=== PATIENT | male | born 1950 | race Caucasian/White ===

== ENCOUNTER 2020-03-25 13:00 | Emergency (ER) | payer OTHER, SELFPAY ==
--- NOTE | 2020-03-25 14:12 | RAD REPORT ---
EXAM DESCRIPTION: CT - CTHCSPWOC - 03/25/2020 1:22 pm CLINICAL HISTORY: Trauma, head and neck injury. Pain;Swelling COMPARISON: No comparisons TECHNIQUE: Axial 5 mm thick images of the head were obtained. Axial 2 mm thick images of the cervical spine were obtained with sagittal and coronal reconstruction images generated and reviewed. All CT scans are performed using dose optimization technique as appropriate and may include automated exposure control or mA/KV adjustment according to patient size. FINDINGS: CT HEAD WITHOUT CONTRAST: No acute hemorrhage, hydrocephalus or extra-axial collection is identified.Mild brain atrophy.No area s of brain edema or midline shift. Mild mucosal thickening left maxillary and right ethmoid air cell. The paranasal sinuses mastoids are otherwise.The calvarium is intact. CT CERVICAL SPINE WITHOUT CONTRAST: No fracture or subluxation.No prevertebral soft tissues swelling is identified. IMPRESSION: No acute intracranial or cervical spine findings.
--- NOTE | 2020-03-25 14:16 | RAD REPORT ---
EXAM DESCRIPTION: RAD - Chest Single View - 03/25/2020 2:09 pm CLINICAL HISTORY: COUGH Chest pain. COMPARISON: No comparisons FINDINGS: Portable technique limits examination quality. The lungs are grossly clear. The heart is mildly prominent size. No displaced fractures. IMPRESSION: No acute intrathoracic process suspected.
--- NOTE | 2020-03-25 14:18 | RAD REPORT ---
EXAM DESCRIPTION: RAD - Humerus Left - 03/25/2020 2:09 pm CLINICAL HISTORY: PAIN Fall, pain COMPARISON: No comparisons FINDINGS: Transverse lucency seen in the distal humerus compatible with fracture. No dislocation see n. Prominent elbow joint degenerative changes are seen.
[2020-03-25 14:42] LABS: Absolute Lymphocytes (CBC) 1.9 K/uL (0.7-4.9); Basophils % 0.8 % (0-1.3); Hematocrit 48.4 % (39.6-49.0); Lymphocytes % 12.5 % (15.3-44.8); MPV 7.6 fL (7.6-11.3); RBC Red Blood Cell Count 5.57 M/uL (4.33-5.43)
[2020-03-25 14:48] LABS: Protime INR 0.98
[2020-03-25] MEDS ORDERED: FENTANYL CITR 100 MCG/2 ML ONE (15:03)
[2020-03-25] MEDS ORDERED: ONDANSETRON 4 MG/2 ML VIAL ONE (15:03)
[2020-03-25 15:55] LABS: ALT/SGPT 55 U/L (12-78); AST/SGOT 20 U/L (15-37); Albumin 3.2 g/dL (3.4-5.0); Alkaline Phosphatase 105 U/L (45-117); BUN Blood Urea Nitrogen 16 mg/dL (7-18); Bicarbonate 23 mmol/L (21-32); Bilirubin Direct 0.1 mg/dL (0-0.2); Bilirubin Total 0.3 mg/dL (0.2-1.0); Magnesium 2.2 mg/dL (1.8-2.4); NT PRO-BNP 29 pg/mL (<125); Potassium 4.2 mmol/L (3.5-5.1); Protein, Total 7.6 g/dL (6.4-8.2); Sodium Level 134 mmol/L (136-145); Troponin (Emerg Dept Use Only) < 0.02 ng/mL (0.0-0.045)
[2020-03-25 15:58] LABS: Glucose Level 467 mg/dL (74-106)
--- NOTE | 2020-03-25 16:02 | ER ---
Nurse's Notes [facility] Name: Rick Noble Age: 70 yrs Sex: Male : 1950 Arrival Date: 03/25/2020 Time: 13:01 Bed 3 Private MD: Diagnosis: Syncope and collapse-near;Nondisplaced simple supracondylar fracture without intercondylar fracture of left humerus;Obesity, unspecified;Essential (primary) hypertension;Atrial fibrillation and flutter;Type 2 diabetes mellitus Presentation: 03/25 13:02 Chief complaint: EMS states: Had unwitnessed syncopal episode in restroom of [facility], ph has frequent syncopal episodes, did hit head on bathroom stall door, also reports that he landed on his L side, c/o L upper arm pain, does take blood thinnners. Coronavirus screen: Patient denies a cough. Patient denies shortness of breath or difficulty breathing. Patient denies measured and/or subjective temperature greater than 100.4F prior to today's visit. Patient denies travel on a cruise ship or to a country the [facility] currently lists as an affected area. Patient denies contact with known and/or suspected case of COVID-19. Ebola Screen: No symptoms or risks identified at this time. Initial Sepsis Screen: Does the patient meet any 2 criteria? No. Patient's initial sepsis screen is negative. Does the patient have a suspected source of infection? No. Patient's initial sepsis screen is negative. Risk Assessment: Do you want to hurt yourself or someone else? Patient reports no desire to harm self or others. Onset of symptoms was March 25, 2020. 13:02 Method Of Arrival: EMS: [facility] ph 13:02 Acuity: EDER 2 ph 13:10 Care prior to arrival: sling to L arm. Mechanism of Injury: Fall from standing ph position. Trauma event details: Injury occurred in the [facility], Injury occurred: in a public building. Injury occurred: March 25, 2020. Historical: - Allergies: 13:06 Onion; ph - PMHx: 13:06 Atrial Fib; Hypertension; Hyperlipidemia; Diabetes - NIDDM; ph - Immunization history:: Adult Immunizations unknown. - Family history:: not pertinent. Screenin:06 Abuse screen: Denies threats or abuse. Denies injuries from another. Nutritional ph screening: No deficits noted. Tuberculosis screening: No symptoms or risk factors identified. Fall Risk Fall in past 12 months (25 points). Secondary diagnosis (15 points) frequent syncopal episodes. No IV (0 pts). Primary Survey: 13:09 NO uncontrolled hemorrhage observed. A: The patient is alert. No supplemental oxygen in ph use on arrival. Oral cavity: clear, Trachea midline. A: Airway: patent. Breathing/Chest: Respiratory pattern:. Breathing/Chest: Respiratory effort: spontaneous, unlabored, Chest inspection: symmetrical rise and fall of the chest. Circulation: Pulses: palpable right radial artery and left radial artery. Skin color: pink, Skin temperature: warm, dry. Disability Alert. Exposure/Environment: There is no evidence of uncontrolled external bleeding. Assessment: 13:08 General: Appears in no apparent distress. uncomfortable, obese, Behavior is calm, ph cooperative, appropriate for age. Pain: Complains of pain in left bicep. Neuro: Level of Consciousness is awake, alert, obeys commands, Oriented to person, place, time, situation, Reports a syncopal episode Denies weakness. Cardiovascular: Capillary refill < 3 seconds in bilateral fingers Patient's skin is warm and dry. Respiratory: Airway is patent Respiratory effort is even, unlabored, Respiratory pattern is regular, symmetrical. Derm: Skin is healthy with good turgor, Skin is pink, warm \T\ dry. Musculoskeletal: Circulation, motion, and sensation intact. Injury Description: Laceration sustained to left side of forehead. 14:20 Reassessment: Patient appears in no apparent distress at this time. Patient and/or em family updated on plan of care and expected duration. Pain level reassessed. Patient is alert, oriented x 3, equal unlabored respirations, skin warm/dry/pink. 16:20 Reassessment: Patient appears in no apparent distress at this time. Patient and/or em family updated on plan of care and expected duration. Pain level reassessed. Patient is alert, oriented x 3, equal unlabored respirations, skin warm/dry/pink. pending completion of IV NS. 17:16 Reassessment: Patient appears in no apparent distress at this time. Patient and/or em family updated on plan of care and expected duration. Pain level reassessed. Patient is alert, oriented x 3, equal unlabored respirations, skin warm/dry/pink. 19:32 Reassessment: attempt to call pt to notify that a yellow colored band with 8 clear sg stones in the band was left in the department per primary nurse GORDY Clifton. A pt belongings list has been filled out and the ring has been taken to the vault by security, a form has been place don the pt chart at this time. 20:20 Reassessment: pt called back, reports will not be able to return here to get the sg ring until morning, informed that the ring is with security in the vault, pt stated understanding. Vital Signs: 13:02 BP 146 / 71; Pulse 73; Resp 18; Pulse Ox 98% on R/A; ph 14:19 BP 159 / 71; Pulse 72; Resp 18; Pulse Ox 97% on R/A; em 14:19 Temp 97.9; em Eldena Coma Score: 13:10 Eye Response: spontaneous(4). Verbal Response: oriented(5). Motor Response: obeys ph commands(6). Total: 15. Trauma Score (Adult): 13:10 Eye Response: spontaneous(1); Verbal Response: oriented(1); Motor Response: obeys ph commands(2); Systolic BP: > 89 mm Hg(4); Respiratory Rate: 10 to 29 per min(4); Eldena Score: 15; Trauma Score: 12 ED Course: 13:01 Patient arrived in ED. ph 13:01 [facility] jr[facility] 13:01 Blair Bowen MD is Attending Physician. jr8 13:04 Triage completed. ph 13:07 Arm band placed on Patient placed in an exam room. ph 13:07 Patient has correct armband on for positive identification. Bed in low position. Call ph light in reach. Side rails up X2. monitor technician on. Pulse ox on. NIBP on. Door closed. Noise minimized. Warm blanket given. 13:11 Patient maintains SpO2 saturation greater than 95% on room air. Thermoregulation: warm ph blanket given to patient. 13:22 CT Head C Spine In Process Unspecified. EDMS 14:09 XRAY Chest (1 view) In Process Unspecified. EDMS 14:09 Humerus Left XRAY In Process Unspecified. EDMS 15:05 Orthoglass splint: posterior long arm splint applied to the left arm. Sling applied to em left arm. 15:08 Etienne Smiley, GORDY is Primary Nurse. em 16:01 Rick Santos MD is Referral Physician. [facility] 17:15 Love Holm FNP-C [facility] snw 17:15 No provider procedures requiring assistance completed. IV discontinued, intact, em bleeding controlled, No redness/swelling at site. Pressure dressing applied. Administered Medications: 15:06 Drug: Zofran (Ondansetron) 4 mg Route: IVP; Site: right hand; em 16:11 Follow up: Response: No adverse reaction em 15:08 Drug: fentaNYL (PF) 50 mcg Route: IVP; Site: right hand; em 16:10 Follow up: Response: No adverse reaction; Marked relief of symptoms; Pain is decreased em 16:21 Drug: Insulin Regular Human 10 units {Co-Signature: em (Etienne Smiley RN).} Route: IVP; hb Site: right hand; 16:58 Follow up: Response: No adverse reaction; Blood sugar is lowered em 16:21 Drug: NS 0.9% 1000 ml Route: IV; Rate: 1 bolus; Site: right hand; hb 16:58 Follow up: IV Status: Completed infusion; IV Intake: 1000ml em 16:36 Drug: LanTUS 40 units Route: Sub-Q; Site: right lower abdomen; em 16:58 Follow up: Response: No adverse reaction; Blood sugar is lowered em Point of Care Testing: Blood Glucose: 17:16 Blood Glucose: 338 mg/dL; em Ranges: Intake: 13:10 PO: 0ml; Total: 0ml. ph 16:58 IV: 1000ml; Total: 1000ml. em Output: 13:10 Urine: 0ml; Total: 0ml. ph Outcome: 16:01 Discharge ordered by . yunior 17:15 Discharged to home via wheelchair. em 17:15 Condition: stable 17:15 Discharge instructions given to patient, Instructed on discharge instructions, follow up and referral plans. medication usage, Demonstrated understanding of instructions, follow-up care, medications, splint care, Prescriptions given X 1. 17:17 Patient left the ED. em Signatures: Dispatcher [employer] Rick Arellano RN RN sg Anderson, Corey, MD MD cha Therrien Love, PLANT BREEDER-C PLANT BREEDER-Csnw Etienne Smiley, RN RN em Sampson Farias PA PA jr8 Rosalba Harper, RN RN Sarah Fernandez, RN RN Etienne Smiley RN
--- NOTE | 2020-03-25 16:03 | EDPHYS ---
Physician Documentation [facility] Name: Rick Noble Age: 70 yrs Sex: Male : 1950 Arrival Date: 03/25/2020 Time: 13: Bed 3 Private MD: ED Physician Blair Bowen HPI: 03/25 13:09 This 70 yrs old Male presents to ER via EMS with complaints of Syncope, Arm yunior Injury. 13:09 The patient has experienced syncope, became unresponsive. Onset: The symptoms/episode yunior began/occurred just prior to arrival. Duration: This was a single episode, that lasted an unknown period of time. Context: the episode(s) was witnessed, by a bystander, occurred at a store, occurred while the patient was standing. Associated injury: The patient did not suffer any apparent associated injury. Associated signs and symptoms: The patient has no apparent associated signs or symptoms. Current symptoms: Currently, the patient is not experiencing any symptoms. The patient has not experienced similar symptoms in the past. Historical: - Allergies: 13:06 Onion; ph - PMHx: 13:06 Atrial Fib; Hypertension; Hyperlipidemia; Diabetes - NIDDM; ph - Immunization history:: Adult Immunizations unknown. - Family history:: not pertinent. ROS: 13:09 Constitutional: Negative for fever, chills, and weight loss, Eyes: Negative for injury, yunior pain, redness, and discharge, ENT: Negative for injury, pain, and discharge, Cardiovascular: Negative for chest pain, palpitations, and edema, Respiratory: Negative for shortness of breath, cough, wheezing, and pleuritic chest pain, Abdomen/GI: Negative for abdominal pain, nausea, vomiting, diarrhea, and constipation, Back: Negative for injury and pain, : Negative for injury, bleeding, discharge, and swelling, MS/Extremity: Negative for injury and deformity, Skin: Negative for injury, rash, and discoloration. 13:09 Neck: Positive for pain with movement, pain at rest. 13:09 Neuro: Positive for headache. Exam: 13:09 Constitutional: This is a well developed, well nourished patient who is awake, alert, yunior and in no acute distress. Eyes: Pupils equal round and reactive to light, extra-ocular motions intact. Lids and lashes normal. Conjunctiva and sclera are non-icteric and not injected. Cornea within normal limits. Periorbital areas with no swelling, redness, or edema. ENT: Nares patent. No nasal discharge, no septal abnormalities noted. Tympanic membranes are normal and external auditory canals are clear. Oropharynx with no redness, swelling, or masses, exudates, or evidence of obstruction, uvula midline. Mucous membranes moist. Neck: Trachea midline, no thyromegaly or masses palpated, and no cervical lymphadenopathy. Supple, full range of motion without nuchal rigidity, or vertebral point tenderness. No Meningismus. Chest/axilla: Normal chest wall appearance and motion. Nontender with no deformity. No lesions are appreciated. Cardiovascular: Regular rate and rhythm with a normal S1 and S2. No gallops, murmurs, or rubs. Normal PMI, no JVD. No pulse deficits. Respiratory: Lungs have equal breath sounds bilaterally, clear to auscultation and percussion. No rales, rhonchi or wheezes noted. No increased work of breathing, no retractions or nasal flaring. Abdomen/GI: Soft, non-tender, with normal bowel sounds. No distension or tympany. No guarding or rebound. No evidence of tenderness throughout. Back: No spinal tenderness. No costovertebral tenderness. Full range of motion. Male : Normal genitalia with no discharge or lesions. Skin: Warm, dry with normal turgor. Normal color with no rashes, no lesions, and no evidence of cellulitis. MS/ Extremity: Pulses equal, no cyanosis. Neurovascular intact. Full, normal range of motion. Neuro: Awake and alert, GCS 15, oriented to person, place, time, and situation. Cranial nerves II-XII grossly intact. Motor strength 5/5 in all extremities. Sensory grossly intact. Cerebellar exam normal. Normal gait. Psych: Awake, alert, with orientation to person, place and time. Behavior, mood, and affect are within normal limits. 13:09 Head/face: Noted is contusion, swelling, that is mild, of the forehead. Vital Signs: 13:02 BP 146 / 71; Pulse 73; Resp 18; Pulse Ox 98% on R/A; ph 14:19 BP 159 / 71; Pulse 72; Resp 18; Pulse Ox 97% on R/A; em 14:19 Temp 97.9; em Saulo Coma Score: 13:10 Eye Response: spontaneous(4). Verbal Response: oriented(5). Motor Response: obeys ph commands(6). Total: 15. Trauma Score (Adult): 13:10 Eye Response: spontaneous(1); Verbal Response: oriented(1); Motor Response: obeys ph commands(2); Systolic BP: > 89 mm Hg(4); Respiratory Rate: 10 to 29 per min(4); [place] Score: 15; Trauma Score: 12 MDM: 13:04 Patient medically screened. jr8 13:14 Data reviewed: vital signs, nurses notes, lab test result(s), EKG, radiologic studies, yunior CT scan, plain films. 13:18 Differential Diagnosis: cardiac arrhythmia, cerebrovascular accident, idiopathic yunior syncope, vasovagal episode. Data interpreted: youth nutritional monitor: rate is 73 beats/min, Pulse oximetry: on 2L(s) per nasal canula, is 98 %. 13:19 Test interpretation: by ED physician or midlevel provider: ECG, plain radiologic yunior studies. Counseling: I had a detailed discussion with the patient and/or guardian regarding: the historical points, exam findings, and any diagnostic results supporting the discharge/admit diagnosis, lab results, radiology results. 03/25 13:09 Order name: Basic Metabolic Panel; Complete Time: 15:59 yunior 03/25 13:09 Order name: CBC with Diff; Complete Time: 15:13 yunior 03/25 13:09 Order name: LFT's; Complete Time: 15:59 yunior 03/25 13:09 Order name: Magnesium; Complete Time: 15:59 yunior 03/25 13:09 Order name: NT PRO-BNP; Complete Time: 15:59 03/25 13:09 Order name: PT-INR; Complete Time: 15:13 yunior 03/25 13:09 Order name: Troponin (emerg Dept Use Only); Complete Time: 15:59 yunior 03/25 13:09 Order name: XRAY Chest (1 view); Complete Time: 14:34 yunior 03/25 13:09 Order name: CT Head C Spine; Complete Time: 14:17 yunior 03/25 13:09 Order name: Humerus Left XRAY; Complete Time: 14:34 yunior 03/25 17:10 Order name: Glucose, Ancillary Testing; Complete Time: 17:17 EDMI 03/25 13:09 Order name: EKG; Complete Time: 13:10 [facility] 03/25 13:09 Order name: Cardiac monitoring; Complete Time: 14:18 [facility] 03/25 13:09 Order name: EKG - Nurse/Tech; Complete Time: 14:54 [facility] 03/25 13:09 Order name: IV Saline Lock; Complete Time: 14:18 [facility] 03/25 13:09 Order name: Labs collected and sent; Complete Time: 14:18 [facility] 03/25 13:09 Order name: O2 Per Protocol; Complete Time: 14:18 [facility] 03/25 13:09 Order name: O2 Sat Monitoring; Complete Time: 14:18 [facility] 03/25 14:08 Order name: Posterior Elbow Splint: well padded, sling; Complete Time: 15:07 [facility] Administered Medications: 15:06 Drug: Zofran (Ondansetron) 4 mg Route: IVP; Site: right hand; em 16:11 Follow up: Response: No adverse reaction em 15:08 Drug: fentaNYL (PF) 50 mcg Route: IVP; Site: right hand; em 16:10 Follow up: Response: No adverse reaction; Marked relief of symptoms; Pain is decreased em 16:21 Drug: Insulin Regular Human 10 units {Co-Signature: em (Etienne Smiley RN).} Route: IVP; hb Site: right hand; 16:58 Follow up: Response: No adverse reaction; Blood sugar is lowered em 16:21 Drug: NS 0.9% 1000 ml Route: IV; Rate: 1 bolus; Site: right hand; hb 16:58 Follow up: IV Status: Completed infusion; IV Intake: 1000ml em 16:36 Drug: LanTUS 40 units Route: Sub-Q; Site: right lower abdomen; em 16:58 Follow up: Response: No adverse reaction; Blood sugar is lowered em Point of Care Testing: Blood Glucose: 17:16 Blood Glucose: 338 mg/dL; em Ranges: Critical Glucose Levels:Adult <50 mg/dl or >400 mg/dl <40 mg/dl or >180 mg/dl Disposition: 03/25/20 16:01 Discharged to Home. Impression: Syncope and collapse - near, Nondisplaced simple supracondylar fracture without intercondylar fracture of left humerus, Obesity, unspecified, Essential (primary) hypertension, Atrial fibrillation and flutter, Type 2 diabetes mellitus. - Condition is Fair. - Discharge Instructions: Atrial Fibrillation, Type 2 Diabetes Mellitus, Diagnosis, Adult, Humerus Fracture Treated With Immobilization, Hypertension, Near-Syncope, Obesity, Adult, Syncope, Humerus Fracture Treated With Immobilization, Krvq-bm-[id number], Near-Syncope, Twhd-sb-Gfky, Hypertension, Ghii-mh-Xotn, Syncope, Kmit-es-Fcgr, Type 2 Diabetes Mellitus, Diagnosis, Adult, Qfct-ed-Qmse, Atrial Fibrillation, Jnnz-he-Wmjn, Obesity, Adult, Ubtz-bb-Yxzy, Vasovagal Syncope, Adult. - Prescriptions for Tylenol- Codeine #3 300-30 mg Oral Tablet - take 2 tablets by ORAL route every 6 hours As needed; 26 tablet. - Medication Reconciliation Form, Thank You Letter, Antibiotic Education, Prescription Opioid Use form. - Follow up: Private Physician; When: 2 - 3 days; Reason: Recheck today's complaints, Continuance of care, Re-evaluation by your physician. Follow up: Rick Santos; When: 2 - 3 days; Reason: Recheck today's complaints, Continuance of care, Re-evaluation by your physician. - Problem is new. - Symptoms have improved. Signatures: Dispatcher [employer] EDMI Blair Bowen MD MD cha Therrien, Shelly, MARBLE MACHINE OPERATOR-C MARBLE MACHINE OPERATOR-Csnw Etienne Smiley, GORDY KAMINSKI em Sampson Farias PA PA jr8 Rosalba Harper RN RN Sarah Fernandez RN RN Etienne Smiley RN em Corrections: (The following items were deleted from the chart) 14:09 13:46 Elbow Left 3 View+RAD.RAD.BRZ ordered. [facility] 17:17 16:01 03/25/2020 16:01 Discharged to Home. Impression: Syncope and collapse - near; em Nondisplaced simple supracondylar fracture without intercondylar fracture of left humerus; Obesity, unspecified; Essential (primary) hypertension; Atrial fibrillation and flutter; Type 2 diabetes mellitus. Condition is Fair. Discharge Instructions: Atrial Fibrillation, Humerus Fracture Treated With Immobilization, Hypertension, Near-Syncope, Obesity, Adult, Syncope, Humerus Fracture Treated With Immobilization, Lhmp-di-Ejfi, Near-Syncope, Ldyc-yp-Lrfm, Hypertension, Thqn-vt-Rzww, Syncope, Crta-lz-Zvrr, Atrial Fibrillation, Caxd-yy-Yutz, Obesity, Adult, Thiq-wu-Xtbc, Vasovagal Syncope, Adult. Prescriptions for Tylenol-Codeine #3 300-30 mg Oral Tablet - take 2 tablets by ORAL route every 6 hours As needed; 26 tablet. and Forms are Medication Reconciliation Form, Thank You Letter, Antibiotic Education, Prescription Opioid Use. Follow up: Private Physician; When: 2 - 3 days; Reason: Recheck today's complaints, Continuance of care, Re-evaluation by your physician. Follow up: Rick Santos; When: 2 - 3 days; Reason: Recheck today's complaints, Continuance of care, Re-evaluation by your physician. Problem is new. Symptoms have improved. yunior
[2020-03-25] MEDS ORDERED: INSULIN -REGULAR HUMAN 50 UNIT/0.5 ML ML ONE (16:19)
[2020-03-25] MEDS ORDERED: NA CHLORIDE 0.9% 1,000 ML ONE (16:20)
[2020-03-25] MEDS ORDERED: INSULIN GLARGINE 100 UNITS/ML SQ SCH (16:30)
[2020-03-25 17:24] VITALS: BP 159/71; TEMP 97.9; O2SAT 97
--- NOTE | 2020-03-26 09:50 | EKG ---
Test Date: 2020-03-25 Test Time: 14:38:49 Testing Lead: KEVIN MEASUREMENT RESULTS: Intervals: Rate: 70 CO: 176 QRSD: 86 QT: 424 QTc: 457 Buckley: P: 64 CO: 176 QRS: -24 T: 36 INTERPRETIVE STATEMENTS: Normal sinus rhythm Low voltage QRS Septal infarct, age undetermined Abnormal ECG No previous ECG available for comparison Electronically Signed On 03-26-20 09:49:32 CDT by Ortiz Haines
== END 2020-03-25 17:17 | disposition home or self-care (01) ==
LOC: ER 13:00
PROC: 2W39X1Z Immobilization of Left Upper Extremity using Splint (ICD-10-PCS; principal; 2020-03-25)
DX: S42.415A Nondisplaced simple supracondylar fracture without intercondylar fracture of left humerus, initial encounter for closed fracture (principal); W01.198A Fall on same level from slipping, tripping and stumbling with subsequent striking against other object, initial encounter; Y93.89 Activity, other specified; Y92.512 Supermarket, store or market as the place of occurrence of the external cause; Z91.018 Allergy to other foods; I10 Essential (primary) hypertension; I48.91 Unspecified atrial fibrillation; E66.9 Obesity, unspecified; I48.92 Unspecified atrial flutter; E11.9 Type 2 diabetes mellitus without complications
CPT/HCPCS: 96361; 93005; 85025; 80048; 36415; 83735; 85610; 82947; 80076; 84484; 83880; 70450; 72125; 71045; 73060; 96375; 96372; 96374; 99285; 29105; J3010; J1815; J7030; J2405